=== PATIENT | male | born 1965 | race Caucasian/White ===

== ENCOUNTER → 2018-07-16 | Outpatient (CLI) | payer OTHER ==
[~2018-07-16] MED LIST: GADOBUTROL 10 ML VIAL IVP ONE
== END ==
LOC: FIMAGING 11:07
PROVIDERS: ATTEND Family Medicine
DX: R22.1 Localized swelling, mass and lump, neck (principal); J32.9 Chronic sinusitis, unspecified; J34.2 Deviated nasal septum; M48.02 Spinal stenosis, cervical region; M50.31 Other cervical disc degeneration, high cervical region
CPT/HCPCS: A9585

== ENCOUNTER 2018-08-14 08:08 | Observation (INO) | payer OTHER ==
[2018-08-14] MEDS ORDERED: PROTAMINE SULFATE 50 MG/5 ML VIAL IVP PRN (08:35)
[2018-08-14] MEDS ORDERED: GLUCAGON HCL 1 MG VIAL IVP PRN (08:35)
[2018-08-14] MEDS ORDERED: FLUMAZENIL 0.5 MG/5 ML MDV IVP PRN (08:35)
[2018-08-14] MEDS ORDERED: MIDAZOLAM 2 MG/2 ML VIAL IVP PRN (08:35)
[2018-08-14] MEDS ORDERED: MEPERIDINE 25 MG/ML SYR IVP PRN (08:35)
[2018-08-14] MEDS ORDERED: ceFAZolin 2 GM/DEXTROSE 100 ML IV ONE (08:35)
[2018-08-14] MEDS ORDERED: fentaNYL 100 MCG/2 ML INJ IVP PRN (08:35)
[2018-08-14] MEDS ORDERED: NALOXONE HCL 0.4 MG/ML INJ IVP PRN ×2 (08:35→11:37)
[2018-08-14] MEDS ORDERED: NS 1,000 ML IV SCH ×2 (08:45→15:15)
--- NOTE | 2018-08-14 09:14 | PDRADPRE ---
Radiology History & Physical Indication for procedure: cancer Allergies/Adverse Reactions: No Known Allergies Allergy (Unverified 08/09/18 13:20) Mental status: A&Ox3
--- NOTE | 2018-08-14 09:15 | PDPROPOC ---
Sedation Plan of Care ASA Classification: ASA 3 Mallampati Score: Class 3 Mallampati Reference Image:
[2018-08-14 09:40] LABS: PLATELET COUNT 264 10^3/uL (150-400)
[2018-08-14 09:51] LABS: INR 0.98 (0.83-1.16); PROTIME(PATIENT) 12.6 SEC (12.0-15.0)
--- NOTE | 2018-08-14 09:51 | PDANEPAE ---
ANE History of Present Illness 53 yo for g tube l tonsil mass. Denies hoarsness. dysphagia, or any changes in breathing ANE Past Medical History - Cardiovascular History Hx Hypertension: No Hx Arrhythmias: No Hx Chest Pain: No Hx Coronary Artery / Peripheral Vascular Disease: No Hx CHF / Valvular Disease: No Hx Palpitations: No - Pulmonary History Hx COPD: No Hx Asthma/Reactive Airway Disease: No Hx Recent Upper Respiratory Infection: No Hx Oxygen in Use at Home: No Hx Sleep Apnea: No Sleep Apnea Screening Result - Last Documented: Positive - Endocrine History Hx Diabetes: No ANE Review of Systems Review of Systems: - Exercise capacity METS (RN): 4 METS ANE Patient History - Allergies Allergies/Adverse Reactions: No Known Allergies Allergy (Unverified 08/09/18 13:20) - NPO status NPO Status: no food or drink >8 hours - Anes Hx Anes Hx: no prior problems - Smoking Hx Smoking Status: Never smoked ANE Labs/Vital Signs - Labs Result Diagrams: 08/14/18 09:20 08/14/18 09:20 - Vital Signs Blood Pressure: 127/91 Heart Rate: 72 Respiratory Rate: 16 O2 Sat (%): 96 Height: 6 ft 3 in Weight: 96.162 kg ANE Physical Exam - Airway Neck exam: FROM Mallampati Score: Class 2 Mouth exam: normal dental/mouth exam - Pulmonary Pulmonary: no respiratory distress - Cardiovascular Cardiovascular: regular rate and rhythym - ASA Status ASA Status: II ANE Anesthesia Plan Anesthesia Plan: general endotracheal anesthesia
[2018-08-14] MEDS ORDERED: IOPAMIDOL (ISOVUE-300) 100 ML BTL ONE (09:52)
[2018-08-14] MEDS ORDERED: MINERAL OIL 10 ML VIAL ONE (09:52)
[2018-08-14] MEDS ORDERED: LIDOCAINE 1% 300 MG/30 ML SDV ONE (09:52)
[2018-08-14] MEDS ORDERED: LIDOCAINE 2% JELLY 20 ML (UROJECT) ONE (10:03)
[2018-08-14] MEDS ORDERED: fentaNYL 100 MCG/2 ML INJ ONE (10:06)
[2018-08-14] MEDS ORDERED: PROPOFOL/EMULSION 500 MG/50 ML BOTTLE IV ONE (10:07)
[2018-08-14] MEDS ORDERED: GLUCAGON HCL 1 MG VIAL ONE (10:17)
[2018-08-14] MEDS ORDERED: ONDANSETRON 4 MG/2 ML VIAL IVP PRN (11:03)
--- NOTE | 2018-08-14 11:05 | PDRADPN ---
Radiology Procedure Note Date of Procedure: 08/14/18 Radiologist: Anum Liu Anesthesia: IV Sedation Pre-op Diagnosis: neck cancer Post-op Diagnosis: same Procedure: percutaneous gastrostomy tube placement Inf/Abcess present in the surg proc area at time of surgery?: No
--- NOTE | 2018-08-14 11:38 | POSTANESTH ---
Post Anesthetic Evaluation Cardiovascular Status: Normal, Stable Respiratory Status: Normal, Stable Level of Consciousness/Mental Status: Can Participate in Eval Pain Control: Adequate, Prn Tx Ordered Nausea/Vomiting Control: Adequate, Prn Tx Ordered Complications Possibly Related to Anesthesia: None Noted
[2018-08-14] MEDS ORDERED: KETOROLAC 30 MG/1 ML SDV ONE (12:05)
[2018-08-14] MEDS ORDERED: fentaNYL 100 MCG/2 ML INJ IV PRN (12:10)
[2018-08-14] MEDS ORDERED: KETOROLAC 30 MG/1 ML SDV IVP ONE (12:15)
[2018-08-14] MEDS ORDERED: HYDROmorphONE/DILAUDID 1 MG/ML INJ IVP PRN (15:32)
--- NOTE | 2018-08-14 15:39 | PDGENHP ---
<Renay Depmsey - Last Filed: 08/14/18 15:57> History and Physical - Chief Complaint Gastrostomy tube placement - History of Present Illness HPI: This is a 53 y/o male with recently diagnosed neck and tonsillar cancer presenting for placement of gastrostomy to ensure proper nutrition during his chemo and radiation treatment which begins this upcoming Sunday. In early July 2018, he was overcoming URI/strep throat and noticed the left side of his neck w/ a large mass. MRI/pathology revealed squamous cell malignant carcinoma. He denies difficulty swallowing, airway obstruction, SOB, chest pain , palpitations, pain, nausea. He was hesitant to have the gastrostomy tube placed as he doesn't think he will need to use it but he decided to listen to his and his doctors to receive it as a precaution. He is being admitted for pain management and observation. History Information - Allergies/Home Medication List Allergies/Adverse Reactions: No Known Allergies Allergy (Unverified 08/09/18 13:20) I have personally reviewed and updated: family history, medical history, social history, surgical history - Past Medical History no pertinent PMH - Surgical History Additional surgical history: Ankle repair - Family History Positive for: non-pertinent - Social History Smoking Status: Never smoked Tobacco Use: Chew (He has been chewing tobacco for 40 years and will not quit) Alcohol Use: None Drug Use: None Review of Systems Review of Systems: ROS: 10pt was reviewed & negative except for what was stated in HPI & below Physical Exam Physical Exam: Lab data and imaging were reviewed. Case discussed with admitting physician, Dr. Nora Turcios. Temp Pulse Resp BP Pulse Ox 36.4 C 64 15 125/83 H 95 08/14/18 11:43 08/14/18 11:43 08/14/18 14:35 08/14/18 14:32 08/14/18 14:35 O2 (L/minute) 8 Constitutional: no apparent distress, appears nourished, not in pain, other ( BMI 26.5 -- overweight) Eyes: PERRL, anicteric sclera, EOMI Ears, Nose, Mouth, Throat: moist mucous membranes, hearing normal, ears appear normal, no oral mucosal ulcers Cardiovascular: regular rate and rhythym, no murmur, rub, or gallop, No edema Peripheral Pulses: 2+: dorsalis-pedis (R) (Radial 2+), dorsalis-pedis (L) ( Radial 2+) Respiratory: reduced air movement Gastrointestinal: soft, non-tender abdomen, no palpable masses, other ( Hypoactive BS) Genitourinary: no bladder fullness, no bladder tenderness Skin: warm, normal color, no rashes or abrasions, no fluctuance, no induration, No mottled Musculoskeletal: full muscle strength, no muscle tenderness, normal joint ROM, no joint effusions Neurologic: AAOx3, sensation intact bilaterally, CN II-XII Intact Psychiatric: interacting appropriately, not anxious, not encephalopathic, thought process linear Lymph, Heme, Immunologic: lymphadenopathy Lab Data & Imaging Review 08/14/18 09:20 08/14/18 09:20 WBC 4.91 10^3/uL (3.80-9.50) 08/14/18 09:20 RBC 5.09 10^6/uL (4.40-6.38) 08/14/18 09:20 Hgb 15.4 g/dL (13.7-17.5) 08/14/18 09:20 Hct 44.5 % (40.0-51.0) 08/14/18 09:20 MCV 87.4 fL (81.5-99.8) 08/14/18 09:20 MCH 30.3 pg (27.9-34.1) 08/14/18 09:20 MCHC 34.6 g/dL (32.4-36.7) 08/14/18 09:20 RDW 12.2 % (11.5-15.2) 08/14/18 09:20 Plt Count 264 10^3/uL (150-400) 08/14/18 09:20 MPV 10.4 fL (8.7-11.7) 08/14/18 09:20 Neut % (Auto) 57.4 % (39.3-74.2) 08/14/18 09:20 Lymph % (Auto) 23.4 % (15.0-45.0) 08/14/18 09:20 Glynn % (Auto) 14.1 % (4.5-13.0) H 08/14/18 09:20 Eos % (Auto) 4.1 % (0.6-7.6) 08/14/18 09:20 Baso % (Auto) 0.6 % (0.3-1.7) 08/14/18 09:20 Nucleat RBC Rel Count 0.0 % (0.0-0.2) 08/14/18 09:20 Absolute Neuts (auto) 2.82 10^3/uL (1.70-6.50) 08/14/18 09:20 Absolute Lymphs (auto) 1.15 10^3/uL (1.00-3.00) 08/14/18 09:20 Absolute Monos (auto) 0.69 10^3/uL (0.30-0.80) 08/14/18 09:20 Absolute Eos (auto) 0.20 10^3/uL (0.03-0.40) 08/14/18 09:20 Absolute Basos (auto) 0.03 10^3/uL (0.02-0.10) 08/14/18 09:20 Absolute Nucleated RBC 0.00 10^3/uL (0-0.01) 08/14/18 09:20 Immature Gran % 0.4 % (0.0-1.1) 08/14/18 09:20 Immature Gran # 0.02 10^3/uL (0.00-0.10) 08/14/18 09:20 PT 12.6 SEC (12.0-15.0) 08/14/18 09:20 INR 0.98 (0.83-1.16) 08/14/18 09:20 APTT 28.6 SEC (23.0-38.0) 08/14/18 09:20 Sodium 137 mEq/L (135-145) 08/14/18 09:20 Potassium 5.0 mEq/L (3.5-5.2) 08/14/18 09:20 Chloride 104 mEq/L (97-110) 08/14/18 09:20 Carbon Dioxide 25 mEq/l (22-31) 08/14/18 09:20 Anion Gap 8 mEq/L (6-14) 08/14/18 09:20 BUN 12 mg/dL (7-23) 08/14/18 09:20 Creatinine 0.9 mg/dL (0.7-1.3) 08/14/18 09:20 Estimated GFR > 60 08/14/18 09:20 Glucose 96 mg/dL (70-100) 08/14/18 09:20 Calcium 9.3 mg/dL (8.5-10.4) 08/14/18 09:20 Assessment & Plan Plan: 53 y/o male w/ no PMH, recently diagnosed with tonsillar and neck cancer who will be undergoing chemo and radiation beginning next Sunday had a gastrostomy tube placed today as a precaution should he be unable to/ and or have difficulty orally intake of food and fluids. 1. S/p gastrostomy tube placement: Per IR orders, needs to be NPO for 24 hours. -Keep insertion site C/D/I; cont to monitor -Pain management IVP w/ Dilaudid and Toradol PRN -Anti-emetics PRN -IVF -INSTALLER HELPER to evaluate and treat pt -CBC/BMP in AM 2. Tonsillar and neck CA: Chemo and radiation begins next Sunday. 3. Tobacco cessation: He has chewed tobacco for 40 years and although I educated him on the detrimental effects -- he refuses to quit. Diet: NPO Code: Full VTE ppx: SCDs, up ad marci Dispo: Admit to obs <Nora Turcios - Last Filed: 08/14/18 22:37> History and Physical - History of Present Illness Review of Systems Review of Systems: Physical Exam Physical Exam: Temp Pulse Resp BP Pulse Ox 36.8 C 87 16 134/94 H 93 08/14/18 20:08 08/14/18 20:08 08/14/18 20:08 08/14/18 20:08 08/14/18 20:08 O2 (L/minute) 8 Lab Data & Imaging Review 08/14/18 09:20 08/14/18 09:20 WBC 4.91 10^3/uL (3.80-9.50) 08/14/18 09:20 RBC 5.09 10^6/uL (4.40-6.38) 08/14/18 09:20 Hgb 15.4 g/dL (13.7-17.5) 08/14/18 09:20 Hct 44.5 % (40.0-51.0) 08/14/18 09:20 MCV 87.4 fL (81.5-99.8) 08/14/18 09:20 MCH 30.3 pg (27.9-34.1) 08/14/18 09:20 MCHC 34.6 g/dL (32.4-36.7) 08/14/18 09:20 RDW 12.2 % (11.5-15.2) 08/14/18 09:20 Plt Count 264 10^3/uL (150-400) 08/14/18 09:20 MPV 10.4 fL (8.7-11.7) 08/14/18 09:20 Neut % (Auto) 57.4 % (39.3-74.2) 08/14/18 09:20 Lymph % (Auto) 23.4 % (15.0-45.0) 08/14/18 09:20 Glynn % (Auto) 14.1 % (4.5-13.0) H 08/14/18 09:20 Eos % (Auto) 4.1 % (0.6-7.6) 08/14/18 09:20 Baso % (Auto) 0.6 % (0.3-1.7) 08/14/18 09:20 Nucleat RBC Rel Count 0.0 % (0.0-0.2) 08/14/18 09:20 Absolute Neuts (auto) 2.82 10^3/uL (1.70-6.50) 08/14/18 09:20 Absolute Lymphs (auto) 1.15 10^3/uL (1.00-3.00) 08/14/18 09:20 Absolute Monos (auto) 0.69 10^3/uL (0.30-0.80) 08/14/18 09:20 Absolute Eos (auto) 0.20 10^3/uL (0.03-0.40) 08/14/18 09:20 Absolute Basos (auto) 0.03 10^3/uL (0.02-0.10) 08/14/18 09:20 Absolute Nucleated RBC 0.00 10^3/uL (0-0.01) 08/14/18 09:20 Immature Gran % 0.4 % (0.0-1.1) 08/14/18 09:20 Immature Gran # 0.02 10^3/uL (0.00-0.10) 08/14/18 09:20 PT 12.6 SEC (12.0-15.0) 08/14/18 09:20 INR 0.98 (0.83-1.16) 08/14/18 09:20 APTT 28.6 SEC (23.0-38.0) 08/14/18 09:20 Sodium 137 mEq/L (135-145) 08/14/18 09:20 Potassium 5.0 mEq/L (3.5-5.2) 08/14/18 09:20 Chloride 104 mEq/L (97-110) 08/14/18 09:20 Carbon Dioxide 25 mEq/l (22-31) 08/14/18 09:20 Anion Gap 8 mEq/L (6-14) 08/14/18 09:20 BUN 12 mg/dL (7-23) 08/14/18 09:20 Creatinine 0.9 mg/dL (0.7-1.3) 08/14/18 09:20 Estimated GFR > 60 08/14/18 09:20 Glucose 96 mg/dL (70-100) 08/14/18 09:20 Calcium 9.3 mg/dL (8.5-10.4) 08/14/18 09:20 Assessment & Plan Assessment: S/P gastrostomy tube (G tube) placement, follow-up exam (Acute) Plan: Patient seen and evaluated independently and care plan reviewed with ELENA Dempsey, agree with her assessment and plan as outlined above, please see separate H&P for further details.
[2018-08-14] MEDS ORDERED: HYDROmorphONE/DILAUDID 2 MG/ML INJ ONE (16:23)
[2018-08-14] MEDS: KETOROLAC 30 MG/1 ML SDV IVP PRN (18:11)
--- NOTE | 2018-08-14 22:41 | HOSPPROG ---
Hospitalist Progress Note Assessment/Plan: 53 y/o male w/ recently diagnosed with tonsillar and neck cancer s/p gastrostomy tube placement for upcoming chemo/radiation and to be monitored overnight for possible complications. # S/p gastrostomy tube placement: Strict NPO for the next 24 hours, will monitor for any s/s of peritonitis overnight, pain management as needed. Dr. Liu to evaluate in am and so long as no complications he can likely dc tomorrow. # Tonsillar and neck CA: Chemo and radiation begins next Sunday, will f/u with oncology as scheduled. # Tobacco use: He has chewed tobacco for 40 years, does not wish to quit at this time Diet: NPO Code: Full VTE ppx: SCDs, up ad marci Dispo: Admit to obs Patient new to my care. Old records reviewed and summarized as above. Care plan reviewed with ELENA Dempsey and IR, please see separate documentation by Ke for further details. Objective: Vital Signs Temp Pulse Resp BP Pulse Ox 36.8 C 87 16 134/94 H 93 08/14/18 20:08 08/14/18 20:08 08/14/18 20:08 08/14/18 20:08 08/14/18 20:08 Laboratory Results 08/14/18 09:20 08/14/18 09:20 08/13/18 08/14/18 08/15/18 05:59 05:59 05:59 Intake Total 700 Output Total 5 Balance 695 PT 12.6 SEC (12.0-15.0) 08/14/18 09:20 INR 0.98 (0.83-1.16) 08/14/18 09:20 ICD10 Worksheet Patient Problems: Problems Problem Status Onset S/P gastrostomy tube (G tube) placement, follow-up exam Acute
[2018-08-15] MEDS: KETOROLAC 30 MG/1 ML SDV IVP PRN ×2 (00:20→06:21)
[2018-08-15 05:44] LABS: PLATELET COUNT 238 10^3/uL (150-400)
[2018-08-15 11:24] VITALS: BP 133/89
--- NOTE | 2018-08-15 11:55 | PDDCSUM ---
Discharge Summary Discharge Summary: Date of Admission: 08/14/2018 Date of Discharge: 08/15/2018 Procedures: 1. Gastrostomy tube placement with IR Discharge Diagnoses: 1. Gastrostomy tube placement 2. Tonsillar and neck cancer 3. Tobacco use Brief Hospital Course: 53 y/o male w/ recently diagnosed with tonsillar and neck cancer who was admitted for overnight monitoring after gastrostomy tube placement for upcoming chemo/radiation. There were no post-procedural complications. His pain was well controlled. He will follow up with oncology with plans to initiate chemotherapy early next week. Medications: Please refer to EMR for complete list. No changes/additions this admission. Follow Up Plan: 1. Has appointment at cancer center this afternoon for chemotherapy teaching ( Dr Oliveira) Physical Exam: Vitals reviewed, stable. Alert and oriented, rrr without m/r/g, lungs clear, abdomen soft, no rashes, no edema, G-tube site c/d/i.
--- NOTE | 2018-08-15 12:47 | ASMTCMCOM ---
CM Note CM Note Notes: Pt discussed in rounds and chart reviewed. Pt is a 53 yr old adm with tonsillar and neck Cancer in for a Gastrostomy Tube Placement, for future Chemo/radiation therapy. He will discharge this afternoon and [facility] Jaylyn is by his side. No needs identified at this time but CM is available. Plan: Discharge to home Independently Date Signed: 08/15/2018 12:47 PM Electronically Signed By:Torri Brito
--- NOTE | 2018-08-15 12:49 | ASMTLACE ---
[facility] Length of stay for Answers: 2 days current admission Comorbidities - select Answers: Any tumor (including all that apply lymphoma or leukemia) # of Emergency department Answers: 0 visits in the last 6 months Score: 4 Date Signed: 08/15/2018 12:48 PM Electronically Signed By:Torri Brito
== END 2018-08-15 12:50 | disposition home or self-care (01) ==
LOC: FIMAGING 08:08 → F1N 15:02
PROVIDERS: ADMIT Internal Medicine; ATTEND Internal Medicine
PROC: 0DH63UZ Insertion of Feeding Device into Stomach, Percutaneous Approach (ICD-10-PCS; principal; 2018-08-14 10:00)
DX: Z43.1 Encounter for attention to gastrostomy (principal); C09.8 Malignant neoplasm of overlapping sites of tonsil; C77.0 Secondary and unspecified malignant neoplasm of lymph nodes of head, face and neck; F17.220 Nicotine dependence, chewing tobacco, uncomplicated
CPT/HCPCS: 49440; G0378; J0690; J1170; J1610; J1885; J2704; J3010; Q9967